=== PATIENT | male | born 1995 | race Caucasian/White ===

== ENCOUNTER 2022-12-03 02:59 | Emergency (ER) | payer OTHER ==
[~2022-12-03] VITALS: Ht 172.7 cm; Wt 59.0 kg
--- NOTE | 2022-12-03 03:29 | NUR ---
URINE COLLECTED AND SENT TO LAB
--- NOTE | 2022-12-03 03:30 | NUR ---
COVID SWAB DONE AND SENT TO LAB
--- NOTE | 2022-12-03 03:30 | NUR ---
BELONGINGS TAKEN AND PLACED IN LOCKER. PATIENT IN GOWN/
[2022-12-03 03:55] LABS: BASOPHILS % (AUTO) 0.4 % (0.0-2.0); HEMATOCRIT 42 % (39-51); HEMOGLOBIN 13.8 g/dL (13.5-17.5); LYMPHOCYTES # (AUTO) 2.4 K/uL (0.8-4.8); LYMPHOCYTES % (AUTO) 30.3 % (20.0-44.0); MEAN CORPUSCULAR HGB CONC 33 g/dl (31.0-36.0); MEAN CORPUSCULAR VOLUME 94 fL (80-96); MONOCYTES # (AUTO) 0.9 K/uL (0.1-1.30); NEUTROPHILS # (AUTO) 4.5 K/uL (1.8-8.9); NEUTROPHILS % (AUTO) 57.3 % (43.0-81.0); PLATELET COUNT (AUTO) 263 K/uL (150-450); RED BLOOD CELL COUNT(AUTO) 4.44 MIL/uL (4.5-6.0); WHITE BLOOD COUNT (AUTO) 7.9 K/uL (4.3-11.0)
[2022-12-03 04:16] LABS: CARBON DIOXIDE 31 mmol/L (21-32); CHLORIDE 104 mmol/L (98-107); CREATININE 0.9 mg/dL (0.6-1.3); GLUCOSE 71 mg/dL (74-106); POTASSIUM 3.9 mmol/L (3.5-5.1); SODIUM SERUM 143 mmol/L (136-145); UREA NITROGEN, BLOOD 13 mg/dL (7-18)
[2022-12-03 04:19] LABS: BILIRUBIN,URINE 1+ (NEGATIVE); COLOR,URINE DARK YELLOW (YELLOW); LEUKOCYTE ESTERASE ,URINE NEGATIVE (NEGATIVE); NITRITE, URINE NEGATIVE (NEGATIVE); PROTEIN,URINE NEGATIVE (NEGATIVE); UGLUCOSE NEGATIVE (NEGATIVE)
[2022-12-03 04:21] LABS: ALANINE AMINOTRANSFERASE 35 U/L (12-78); ALBUMIN 3.6 g/dL (3.4-5.0); ALKALINE PHOSPHATASE 93 U/L (46-116); ASPARTATE AMINOTRANSFERASE 33 U/L (15-37); BILIRUBIN,DIRECT 0.3 mg/dL (0.0-0.2); BILIRUBIN,TOTAL 1.5 mg/dL (0.2-1.0); TOTAL PROTEIN, SERUM 6.7 g/dL (6.4-8.2)
[2022-12-03 04:22] LABS: ACETAMINOPHEN 0 ug/ml (10-30); ALCOHOL, BLOOD < 3 mg/dL (0-0)
[2022-12-03 04:24] LABS: BACTERIA,URINE Rare /HPF (None Seen); RBC,URINE 0-2 /HPF (0-2); SQUAMOUS EPITHELIAL CELL,UR Few /HPF (None Seen)
--- NOTE | 2022-12-03 06:09 | NUR ---
clinicals faxed to [facility] intake
--- NOTE | 2022-12-03 08:29 | NUR ---
PT PROVIDED WITH RESOURCES FOR PRISON AND PSYCHIATIC HELP. PT WAS PROVIDED WITH A BUS PASS.
[2022-12-03] MEDS ORDERED: IBUPROFEN 400 MG TABLET PO ONE (09:00)
--- NOTE | 2022-12-03 09:00 | NUR ---
SS Consult: SS consult requested for homelessness and depression. The pt. is a 27-year-old male pt. who came to the ER due to symptoms of depression and Hx. of Bipolar disorder per EMR. Upon SS consult, the pt. is Alert & Oriented x 4 and makes good eye contact. The pt. appears well-groomed. Pt. has depressed mood & affect. Pt.'s speech is soft and clear. Pt. remained calm & cooperative throughout interview. Pt. denies SI/HI and denies hallucinations. SW explored pt.'s living situation. Patient states he is currently experiencing homelessness for the past 1week. Pt. reports that he was living at home with his mother in [place], but he was kicked out due to not getting along with his mother. Pt. states he is non-compliant with his medication [Lavalette, Seroquel] and then becomes upset with his mother disrespects her, and therefore he is not welcome back into the home. Pt. states he receives mental health services at [facility] in [place]. Per pt., he has a case folder, Andrew. SW encouraged him to be in communication with Andrew as he can also provide him with some resources and support. Pt. is agreeable. Pt. requesting resources for rehousing, and employment. SW provided resources requested: [facility] Helpline for [facility] for immediate intermediate, [facility] Housing and for housing and [employer] [phone] AND [employer] [facility] Work Source [phone] for employment. Pt. states he has a car that does not work, and it is parked in front of his mother's home. Pt. states he sleeps there at times. Per pt. he has a skateboard he uses for transportation. SW explored pt.'s drug & ETOH use. Pt. denies any drug and alcohol use. Per pt. he is ambulatory and independent with all his ADL's. Pt. states he does not receive any financial assistance. Plan: SW provided pt. with the following homeless resources and pt. accepted them. Pt. was agreeable to using homeless resources to find intermediate placement, rehousing services and assistance with employment. Pt. signed homeless waiver and it was placed in the pt.'s chart. [place] Al[facility] list : [place] [facility]; [place] Adult WSP site; NEVIN Adult WSP site; and WFD Adult WSP site; instruction to call 211 for availability. Year-round shelters: [facility] [address] [place], [place] [phone] ; [place] [facility] [place] [address] [facility] [place] [address]; [facility] [address] [facility] [address] Hygiene: [facility]: [address] [place] ; [facility] [facility] [address] [facility] ; [facility] [address] [facility] [place] . Food Resources: [place] [facility] at [facility]- [address] [facility]. [place]; Meet Each Need with Dignity ([facility]) [address] [facility]; [facility] [address] [facility]; [facility] [address] [facility]. Mental Health resources provided: [facility] [address] [place], [place] [phone] ; [facility] [employer] [address] [facility] [address], [place], [place] [phone] ; Smita Pereira [facility] [address] [place], [place] [phone] ; [facility] [address] [place], [place] [phone] Healthcare Clinics: [facility] [address] [place]. [place] ; [facility] [address] [facility] [address] [place] [address]; [facility] [address] [facility] [place] [phone] Counseling--Outpatient [facility] [address] [facility], [address] [place], [place] [phone] (Specializes in in-depth psychotherapy for emotional distress: anxiety, depression, interpersonal conflicts, life transitions, childhood abuse) [facility] [address] [place], [place] [address] (Assist with solving problem marital difficulties, separation & divorce, aging parents, & grief, chronic & terminal illness) [facility] [address] [place] [address] (Deal with loss & grief, anxiety, marital difficulties) Homebound/Mental Health Services [address] [facility] [address] [place], [place] [phone] (Provide in-home mental services to people who are incapable of leaving their homes) [facility]eds of the Elderly Senior Service/Resource Center [address] [place] [address] [facility] [address] [place], [place] [address] PSYCHIATRIC OUTPATIENT SERVICES [facility] Partial Hospitalization and Intensive Outpatient Program (Managed Care and [place] Only)[address] [facility] [phone] [facility] Partial Hospitalization and Outpatient Sxlfgga21208 [facility] [address] [place], [place] [phone] [facility] [employer] Csc[address] [facility] [address] [place], [place] [phone] [facility] Partial Hospitalization and Outpatient Fycrtou18826 [place], [phone] Substance Abuse resources provided included: [facility] Substance Abuse Self-Helpline ([facility]) ; [facility] [address] [facility] [place] [address] ; [facility] [address] [facility] [address] ; [facility] [address] [facility] [address] ; [facility] [address] [facility] [phone] ; [facility] [address] [facility] [address] ; [facility] [address] [facility] [phone] ; [facility] Substance Abuse Helpline(S[facility])-[facility] ; [facility] ; [place]; [facility] [place]; [facility] [place]; [facility] Bobby Gaines; [facility] [facility]; [place]; [facility]; [facility]'s [employer] [place]; Alcoholics Anonymous -SFV; Mp-Yund-Rqrrfkj ; Marijuana Anonymous -SFV; Narcotics Anonymous www.na.org; Single Men Housing: [facility] [phone] [facility] [phone] [facility] [phone] [facility] [place] [facility] [place] [phone] [place] [facility] [phone] [facility] [place] [phone] Starting Over [phone] [facility] [place] [phone] [facility] [place] [phone] [place]: [facility] Confucianism Mormonism Showers [address] [facility] Food distribution [facility] [address] [facility] [address] [place] [address] [facility] [place] [phone]
[2022-12-03] MEDS ORDERED: IBUPROFEN 400 MG TABLET ONE (09:07)
[2022-12-03 11:10] VITALS: BP 125/77
--- NOTE | 2022-12-03 11:10 | NUR ---
Patient discharged to home in stable condition. Written and verbal after care instructions given. Patient verbalizes understanding of instruction.
== END 2022-12-03 11:11 | disposition home or self-care (01) ==
LOC: ER 02:59
DX: F31.9 Bipolar disorder, unspecified (principal); Z59.00 Homelessness unspecified; Z20.822 Contact with and (suspected) exposure to COVID-19
CPT/HCPCS: 99284; 85025; 80048; 80076; 81001; 36415; 87426; 80143; 80320; 80307; C9803; G0480